=== PATIENT | female | born 1975 | race Asian ===

== ENCOUNTER 2016-12-07 16:44 | Outpatient (CLI) | payer SELFPAY ==
[~2016-12-07] VITALS: Ht 154.9 cm; Wt 65.0 kg
[~2016-12-07 16:44] MED LIST: IBUP100T11 PO; OXYC-302 PO
[2016-12-07 16:48] VITALS: BP 93/59
[2016-12-07] MEDS ORDERED: TERBUTALINE 1 MG/ML, 1ML ONE (17:29)
[2016-12-07] MEDS ORDERED: TERBUTALINE 1 MG/ML, 1ML SQ ONE (17:30)
== END 2016-12-07 19:35 | disposition home or self-care (01) ==
LOC: LDOP 16:44
PROVIDERS: ATTEND Obstetrics & Gynecology
DX: O09.523 Supervision of elderly multigravida, third trimester (principal); O26.893 Other specified pregnancy related conditions, third trimester; R10.9 Unspecified abdominal pain; M54.9 Dorsalgia, unspecified; Z3A.31 31 weeks gestation of pregnancy
CPT/HCPCS: 36415; 59025; 76770; 81001; 82731; 87086; 99211; J3105; G0463

== ENCOUNTER 2019-04-20 21:03 | Emergency (ER) | payer OTHER ==
[~2019-04-20] VITALS: Ht 162.6 cm; Wt 60.0 kg
[~2019-04-20 21:03] MED LIST changes: +IBUP-1222 PO
--- NOTE | 2019-04-20 21:31 | NUR ---
PT TO LOBBY WITH , ASSISTED BY SECURITY. PT YELLING AND SCREAMING, DEMANDING HELP. EXPLAINED TO NO ROOM AVAILABLE.
[2019-04-20] MEDS ORDERED: DIPHENHYDRAMINE 50 MG/ML, 1ML ONE (22:19)
[2019-04-20] MEDS ORDERED: MORPHINE SULFATE 4 MG/ML, 1ML ONE (22:19)
[2019-04-20] MEDS ORDERED: PROCHLORPERAZINE 5 MG/ML, 2ML ONE (22:19)
[2019-04-20] MEDS ORDERED: PROCHLORPERAZINE 5 MG/ML, 2ML IVPush ONE (22:30)
[2019-04-20] MEDS ORDERED: DIPHENHYDRAMINE 50 MG/ML, 1ML IVPush ONE (22:30)
[2019-04-20] MEDS ORDERED: MORPHINE SULFATE 4 MG/ML, 1ML IVPush ONE (22:30)
[2019-04-20 22:35] LABS: BASOPHILS # (AUTO) 0.03 x10^3/uL (0-0.1); BASOPHILS % (AUTO) 0 % (0-1); EOSINOPHILS # (AUTO) 0.07 x10^3/uL (0-0.4); EOSINOPHILS % (AUTO) 1 % (1-7); LYMPHOCYTES # (AUTO) 1.65 x10^3/uL (1-3.4); LYMPHOCYTES % (AUTO) 12 % (22-44); MD NO; MEAN CORPUSCULAR HGB CONC 33.1 g/dL (32.4-35.8); MEAN CORPUSCULAR VOLUME 93.7 fL (80-100); MEAN PLATELET VOLUME 8.9 fL (7.4-10.4); MONOCYTES # (AUTO) 0.45 x10^3/uL (0.2-0.8); MONOCYTES % (AUTO) 3 % (2-9); NEUTROPHILS # (AUTO) 12.17 x10^3/uL (1.8-6.8); NEUTROPHILS % (AUTO) 85 % (42-75); PLATELET COUNT 290 x10^3/uL (130-400); RED BLOOD COUNT 4.61 x10^6/uL (3.82-5.3); RED CELL DISTRIBUTION WIDTH 12.4 % (9.6-15.2)
[2019-04-20 22:47] LABS: ALBUMIN 4.1 g/dL (3.4-5.0); ANION GAP 10 mmol/L (5-15); CALCIUM 9.2 mg/dL (8.5-10.1); CHLORIDE 107 mmol/L (98-107); CREATININE 0.92 mg/dL (0.55-1.02)
[2019-04-20] MEDS ORDERED: OMNIPAQUE 350 MG/ML, 100ML BOTTLE ONE (23:26)
[2019-04-21 00:04] VITALS: BP 104/55
== END 2019-04-21 01:02 | disposition home or self-care (01) ==
LOC: ED 04-21 01:00
DX: G43.009 Migraine without aura, not intractable, without status migrainosus (principal); R11.2 Nausea with vomiting, unspecified; R06.02 Shortness of breath
CPT/HCPCS: 36415; 70450; 70496; 70498; 80048; 82040; 84703; 85025; 96374; 96375; 99284; J0780; J1200; J2270; Q9967

== ENCOUNTER 2020-03-18 14:02 | Emergency (ER) | payer BC, OTHER ==
[~2020-03-18] VITALS: Ht 154.9 cm; Wt 57.2 kg
[2020-03-18] MEDS ORDERED: MORPHINE SULFATE 4 MG/ML, 1ML IVPush PRN (14:30)
[2020-03-18] MEDS ORDERED: ONDANSETRON 2MG/ML, 2ML IVPush ONE (14:30)
[2020-03-18] MEDS ORDERED: SODIUM CHLORIDE FLUSH 10ML SYR IVF ONE (14:30)
--- NOTE | 2020-03-18 14:32 | NUR ---
PT AMBULATED TO RESTROOM WITH STADY GAIT TO PROVIDE URINE SAMPLE.
[2020-03-18] MEDS ORDERED: MORPHINE SULFATE 4 MG/ML, 1ML ONE (14:35)
[2020-03-18] MEDS ORDERED: ONDANSETRON 2MG/ML, 2ML ONE (14:35)
[2020-03-18 14:46] LABS: MICROSCOPIC INDICATED
[2020-03-18] MEDS ORDERED: FAMO40TA61 PO (14:55)
[2020-03-18 14:57] LABS: BASOPHILS % (AUTO) 0 % (0-1); EOSINOPHILS % (AUTO) 0 % (1-7); LYMPHOCYTES % (AUTO) 9 % (22-44); MEAN CORPUSCULAR HEMOGLOBIN 30.6 pg (27.0-34.8); MEAN CORPUSCULAR HGB CONC 32.9 g/dL (32.4-35.8); MEAN PLATELET VOLUME 9.1 fL (7.4-10.4); MONOCYTES % (AUTO) 3 % (2-9); NEUTROPHILS % (AUTO) 87 % (42-75); PLATELET COUNT 268 x10^3/uL (130-400); RED BLOOD COUNT 4.62 x10^6/uL (3.82-5.3); RED CELL DISTRIBUTION WIDTH 12.1 % (9.6-15.2)
[2020-03-18 15:01] LABS: MD NO
--- NOTE | 2020-03-18 15:03 | NUR ---
PT PROVIDED SMALL URINE SAMPLE, UA COLLECTED AND TAKEN TO LAB BY BEHAVIORAL HEALTH ASSISTANT. PIV PLACED, LABS DRAWN AND SENT TO LAB WITH LAB SLIP. MEDS ADMIN PER MAY. PT CONNECTED TO MONITORING. SPOUSE AT BEDSIDE. CALL LIGHT IN REACH. AWAITING CT.
[2020-03-18 15:09] LABS: ALANINE AMINOTRANSFERASE 27 U/L (12-78); ALBUMIN 4.3 g/dL (3.4-5.0); ANION GAP 4 mmol/L (5-15); CALCIUM 9.2 mg/dL (8.5-10.1); CHLORIDE 109 mmol/L (98-107); CREATININE 1.08 mg/dL (0.55-1.02)
[2020-03-18 15:14] LABS: ALKALINE PHOSPHATASE 59 U/L (45-117); BILIRUBIN,TOTAL 0.6 mg/dL (0.2-1.0); TOTAL PROTEIN 7.9 g/dL (6.4-8.2)
--- NOTE | 2020-03-18 15:55 | NUR ---
PT GOING TO CT.
[2020-03-18 16:06] VITALS: BP 95/57
--- NOTE | 2020-03-18 16:08 | NUR ---
PT STATES PAIN IS GONE AFTER PAIN MEDS. PT RESTING COMFORTABLY ON GURNEY. JASMYN.
--- NOTE | 2020-03-18 16:23 | NUR ---
ALL RESULTS ARE BACK AT THIS TIME. CHART UP FOR RECHECK.
== END 2020-03-18 17:11 | disposition home or self-care (01) ==
LOC: ED 15:10
DX: N20.0 Calculus of kidney (principal); R10.31 Right lower quadrant pain; R11.2 Nausea with vomiting, unspecified
CPT/HCPCS: 36415; 74176; 80053; 81001; 83690; 84703; 85025; 96374; 96375; 99284; J2270; J2405